=== PATIENT | female | born 1990 | race Caucasian/White ===

== ENCOUNTER 2022-10-27 00:34 | Emergency (ER) | payer SELFPAY ==
[~2022-10-27] VITALS: Ht 167.6 cm; Wt 73.0 kg
[2022-10-27] MEDS ORDERED: OLANZAPINE 10 MG/VIAL IM ONE (01:00)
[2022-10-27 01:17] LABS: BASOPHILS % 0.6 % (0.0-2.0); EOSINOPHILS % 0.4 % (0.0-5.0); HEMATOCRIT. 42.6 % (36.0-48.0); HEMOGLOBIN. 14.4 g/dL (12.0-16.0); LYMPHOCYTES % 14.8 % (20.0-50.0); MEAN CORPUSCULAR VOLUME 97.7 fL (81.0-99.0); MEAN PLATELET VOLUME 9.2 fl (7.4-10.4); MONOCYTES % 9.9 % (2.0-8.0); NEUTROPHILS % 74.3 % (40.0-76.0); PLATELET 231 x1000/uL (130-400); RED BLOOD CELL COUNT 4.36 mill/uL (4.2-5.4); RED CELL DISTRIBUTION WIDTH 13.8 % (11.6-14.6)
[2022-10-27 01:20] LABS: CHLORIDE 103 mEq/L (98-107)
[2022-10-27 01:22] LABS: HCG SCREEN NEGATIVE
[2022-10-27 01:29] LABS: ETHANOL BLOOD < 10 mg/dL
[2022-10-27] MEDS ORDERED: POTASSIUM CHLORIDE 20MEQ TABLET SR PO NR (04:45)
[2022-10-27 13:00] VITALS: BP 94/50
== END 2022-10-27 17:51 | disposition home or self-care (01) ==
LOC: ER 00:34
DX: R41.82 Altered mental status, unspecified (principal); F15.10 Other stimulant abuse, uncomplicated; E87.6 Hypokalemia
CPT/HCPCS: 36415; 80053; 80307; 80320; 80329; 84703; 85025; 93005; 99284; Z7610; G0480